=== PATIENT | male | born 1975 | race Caucasian/White ===

== ENCOUNTER 2017-11-03 00:23 | Emergency (ER) | payer BC ==
[2017-11-03] MEDS ORDERED: oxyCODONE/Acetamin 5/325 MG* TAB ONE (02:03)
[2017-11-03] MEDS ORDERED: oxyCODONE/Acetamin 5/325 MG* TAB PO ONE (02:10)
[2017-11-03] MEDS ORDERED: Amoxicillin/Clavulanate TAB* 875 MG PO ONE (02:10)
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
[2017-11-03 03:16] VITALS: BP 123/70
--- NOTE | 2017-11-03 08:30 | RAD ---
HISTORY: Penetrating trauma, foreign body COMPARISONS: None VIEWS: 4, Frontal, lateral, and oblique views of the right hand FINDINGS: BONE DENSITY: Normal. BONES: There is no displaced fracture. JOINTS: There is no arthropathy. ALIGNMENT: There is no dislocation. SOFT TISSUES: There is subcutaneous emphysema OTHER FINDINGS: There is a 0.4 cm around a radiopaque foreign body within the soft tissues along the dorsal aspect of the hand in the third and fourth metacarpals. IMPRESSION: SUBCUTANEOUS EMPHYSEMA WITH A RADIOPAQUE FOREIGN BODY WITHIN THE SOFT TISSUES OF THE HAND BETWEEN THE THIRD AND FOURTH METACARPALS, DORSALLY
== END 2017-11-03 03:14 | disposition home or self-care (01) ==
LOC: ED 00:23
DX: S60.551A Superficial foreign body of right hand, initial encounter (principal); W34.010A Accidental discharge of airgun, initial encounter; Y92.9 Unspecified place or not applicable
CPT/HCPCS: 99282; A9270-GY